=== PATIENT | female | born 1930 | race Asian ===

== ENCOUNTER → 2016-11-12 14:48 | Outpatient (CLI) | payer MEDICARE | END | disposition home or self-care (01) | LOC: D.MAMMO 11:00 | DX: Z12.31 Encounter for screening mammogram for malignant neoplasm of breast (principal) ==

== ENCOUNTER → 2019-03-18 09:14 | Outpatient (CLI) | payer MEDICARE ==
[~2019-03-18] VITALS: Ht 154.9 cm; Wt 74.5 kg
[2019-03-18 09:48] VITALS: Ht 154.9 cm; Wt 74.5 kg
--- NOTE | 2019-03-18 14:48 | NUR ---
PATIENT DENIES ANY SYMPTOMS OF TRANSFUSION REACTION AND HAS NO OBSERVED SIGNS OF REACTION. PATIENT WALKS OUT OF OUTPATIENT DEPARTMENT WITH DAUGHTER
== END | disposition home or self-care (01) ==
LOC: D.OPS 09:14
PROVIDERS: ATTEND Internal Medicine Hematology & Oncology
DX: D46.20 Refractory anemia with excess of blasts, unspecified (principal)

== ENCOUNTER → 2019-04-15 10:39 | Outpatient (CLI) | payer MEDICARE ==
[~2019-04-15] VITALS: Ht 154.9 cm; Wt 74.5 kg
[2019-04-15 12:10] VITALS: BP 111/78; Ht 154.9 cm; Wt 74.5 kg
--- NOTE | 2019-04-15 14:09 | NUR ---
1335: PT PIV REMOVED FROM R-WRIST. 2X2 GAUZE, MEDIPORE TAPE AND COMPRESSION WRAP APPLIED. 1343: NO BLEEDING NOTED FROM PIV SITE. PT TRANSPORTED VIA WC TO [facility] FOR RIDE HOME.
== END | disposition home or self-care (01) ==
LOC: D.OPS 10:30
PROVIDERS: ATTEND Internal Medicine Hematology & Oncology
DX: D69.49 Other primary thrombocytopenia (principal); D46.1 Refractory anemia with ring sideroblasts

== ENCOUNTER 2019-05-31 09:55 | Outpatient (CLI) | payer MEDICARE ==
[~2019-05-31] VITALS: Ht 154.9 cm; Wt 72.7 kg
[2019-05-31 10:51] VITALS: BP 143/63; Ht 154.9 cm; Wt 72.7 kg
--- NOTE | 2019-05-31 11:21 | NUR ---
1115 ROOM CHECK, DAUGHTER AT SIDE, DENIES PROBLEMS WITH BLOOD, RATE INCREASED TO 150/CC/HR.
--- NOTE | 2019-05-31 11:31 | NUR ---
1130 REG. DIET SERVED.
--- NOTE | 2019-05-31 12:04 | NUR ---
1200 ROOM CHECK, PT. EATING, DENIES PROBLEMS.
--- NOTE | 2019-05-31 12:21 | NUR ---
1220 ATE 80% LUNCH, TRANSFUSION GOING WELL, RATE AT 250/CC/HR. DENIES PROBLEMS. HOB ADJUSTED FOR COMFORT.
--- NOTE | 2019-05-31 12:57 | NUR ---
2ND UNIT STARTED AT THIS TIME, PT PLACED ON 2L NC O2 WAS 89% RA. PT DENIES ANY COMPLAINTS AT THIS TIME.
--- NOTE | 2019-05-31 13:45 | NUR ---
1240 FIRST UNIT BLOOD HAS COMPLETED, LINE FLUSHED WITH NS, LASIX GIVEN E-MAR, 1255 2ND UNIT CHECKED AT BEDSIDE, INITIATED AT 50/CC/HR. 1310 DENIES PROBLEMS, RATE INCREASED TO 250/CC/HR. 1330 ROOM CHECK, DENIES PROBLEMS. 1345 ROOM CHECK, DENIES PROBLEMS, LAYING ON RIGHT SIDE, RESTING.
--- NOTE | 2019-05-31 13:56 | NUR ---
PT WEANED OFF OF 02 AT THIS TIME, O2 96% ON ROOM AIR.
--- NOTE | 2019-05-31 17:24 | NUR ---
1449 2ND UNIT COMPLETED, LINE BEING FLUSHED. 1505 PLATLETS INITIATED. 1535 PLATLETS COMPLETED, LINE BEING FLUSHED, DENIES PROBLEMS. UP TO BR 1600 IV DC'D WITH CATH INTACT DC INSTS REVIEWED VOICED UNDERSTANDING RELEASED IN WC WITH DAUGHTER
== END 2019-05-31 16:10 | disposition home or self-care (01) ==
LOC: D.OPS 09:55
PROVIDERS: ATTEND Internal Medicine Hematology & Oncology
DX: D69.49 Other primary thrombocytopenia (principal); D46.Z Other myelodysplastic syndromes; R53.83 Other fatigue

== ENCOUNTER 2019-06-14 16:00 | Outpatient (CLI) | payer MEDICARE ==
[~2019-06-14] VITALS: Ht 154.9 cm; Wt 72.7 kg
[2019-06-14 12:36] VITALS: BP 111/70; Ht 154.9 cm; Wt 72.7 kg
--- NOTE | 2019-06-14 15:50 | NUR ---
1500 2ND UNIT INFUSING 1515 REPORT RECIEVED FROM ANGÉLICA. PT SLIGHTLY SOB WHEN TALKING. DR FUNES CALLED AND ORDERS GIVEN 1520 ASSISTED UP TO BSC VOIDED LARGE AMT 1530 PCXR DONE TOLERATED WELL 1540 RESP HERE TO GIVE TX 1555 PT ASSISTED UP TO BSC TO VOID AGAIN
--- NOTE | 2019-06-14 16:52 | NUR ---
8579 DAUGHTER AT BEDSIDE
--- NOTE | 2019-06-14 18:33 | NUR ---
1805 PLATLETS INFUSED. INSTRUCTIONS GIVEN 1815 IV REMOVED AND PRESSURE HELD MORE THAN 10 MIN. PRESSURE DRESSING APPLIED
== END 2019-06-14 18:30 | disposition home or self-care (01) ==
LOC: D.OPS 16:00
PROVIDERS: ATTEND Internal Medicine Hematology & Oncology
DX: D46.Z Other myelodysplastic syndromes (principal); D69.49 Other primary thrombocytopenia; R53.83 Other fatigue

== ENCOUNTER 2019-07-01 12:18 | Inpatient (IN) | payer MEDICARE ==
[~2019-07-01] VITALS: Ht 154.9 cm; Wt 74.0 kg
[2019-07-01 13:15] LABS: ANION GAP 7.7 mmol/L (8-16); CALCIUM 9.1 mg/dL (8.5-10.1); CARBON DIOXIDE 32.6 mmol/L (21.0-32.0); CREATININE - SERUM 0.8 mg/dL (0.6-1.3); POTASSIUM - SERUM 4.3 mmol/L (3.5-5.1)
[2019-07-01 13:23] LABS: ALBUMIN 3.5 g/dL (3.4-5.0); BILIRUBIN - TOTAL 1.09 mg/dL (0.2-1.3); PROTEIN - SERUM 6.9 g/dL (6.4-8.2)
[2019-07-01 13:35] LABS: HEMATOCRIT 21.7 % (36.0-48.0); MCH 31.4 pg (26.0-34.0); MCHC 32.3 g/dL (31.0-37.0); MCV 97.3 fL (80.0-100.0); RBC 2.23 10x6/uL (4.00-5.40); RDW 22.5 % (11.5-14.5); WBC 2.3 10x3/uL (4.8-10.8)
[2019-07-01 14:13] LABS: PLATELET COUNT 21 10x3/uL (130-400)
[2019-07-01 14:17] LABS: CKMB 3.9 U/L (0.0-3.6); CREATINE KINASE 85 UL (21-215); EOSINOPHILS 1 % (0-7); LYMPHOCYTES 24 % (15-50); MONOCYTES 2 % (2-11); NEUTROPHILS 63 % (40-80); PLATELET ESTIMATE DECREASED
[2019-07-01 14:22] LABS: TROPONIN-I < 0.017 ng/mL (0.000-0.060)
[2019-07-01 14:51] LABS: C-REACTIVE PROTEIN 0.3 mg/dL (0.0-0.9)
--- NOTE | 2019-07-01 20:30 | NUR ---
RECEIVED PT TO ROOM FROM ER VIA BED. PLACED IN DROPLETT PRECAUTIONS PER ORDER. PT AMBULATORY WITH STAND BY ASSIST. PT HAS DYSPNEA ON EXERTION AND FREQUENT COUGHT. 2L VIA NC, PT STATES THAT WHAT SHE WEARS AT HOME. NO S/SX OF DISTRESS OBSERVED AT THIS TIME. EDUCATED USE OF CALL LIGHT FOR ASSISTANCE. WILL CTM.
[2019-07-02 01:05] VITALS: BP 118/49
[2019-07-02 01:11] VITALS: BP 125/64; BMI 30.8
--- NOTE | 2019-07-02 01:40 | NUR ---
PT RESTING IN BED. NO VOICED C/O OR CONCERNS AT THIS TIME. PLACED ON TELEMETRY PER ORDER. 79 NORMAL SINUS. CALL LIGHT IN REACH. WILL CTM.
[2019-07-02 05:05] LABS: BASOPHILS 0.5 % (0-2); EOSINOPHILS 1.5 % (0-7); LYMPHOCYTES 33.7 % (15-50); MCH 31.5 pg (26.0-34.0); MCHC 32.8 g/dL (31.0-37.0); MCV 96.1 fL (80.0-100.0); MONOCYTES 7.9 % (2-11); NEUTROPHILS 56.4 % (40-80); RBC 2.03 10x6/uL (4.00-5.40); RDW 22.5 % (11.5-14.5)
[2019-07-02 05:11] LABS: HEMATOCRIT 19.5 % (36.0-48.0); HEMOGLOBIN 6.4 g/dL (12-16); PLATELET COUNT 15 10x3/uL (130-400)
[2019-07-02 05:13] LABS: APTT 26.5 SECONDS (22.8-39.4); INR 1.09 (0.85-1.17); PROTIME 14.1 SECONDS (11.6-15.0)
[2019-07-02 05:14] LABS: D-DIMER-QUANTITATIVE 0.33 ug/mLFEU (0.20-0.54)
[2019-07-02 05:30] LABS: ANION GAP 8.5 mmol/L (8-16); CALCIUM 8.9 mg/dL (8.5-10.1); CARBON DIOXIDE 30.3 mmol/L (21.0-32.0); CREATININE - SERUM 0.8 mg/dL (0.6-1.3); MAGNESIUM - SERUM 1.6 mg/dL (1.8-2.4); PHOSPHOROUS 4.2 mg/dL (2.5-4.9); POTASSIUM - SERUM 3.8 mmol/L (3.5-5.1)
--- NOTE | 2019-07-02 06:00 | NUR ---
NOTIFED VERITO GONZALEZ OF HGB 6.4. RECEIVED ORDER TO TRANSFUSE 2 UNITS OF PRBC AND TO NOTIFY DR. BENITO OF LOW PLT COUNT AND ADDITIONAL LABS. PAGED X2.
--- NOTE | 2019-07-02 06:24 | NUR ---
STARTED FIRST UNIT OF PRBC PER ORDER TO 20G PIV IN RIGHT AC. NO S/SX OF AN ADVERSE REACTION NOTED. NO S/SX OF DISTRESS OBSERVED. CALL LIGHT IN REACH. WILL CTM.
--- NOTE | 2019-07-02 07:25 | NUR ---
PT ALERT/ORIENTED, BLOOD INFUSING AT THIS TIME. NO COMPLAINTS OR CONCERNS AT THIS TIME. CL IN REACH, SRX2. NO VISITORS AT BEDSIDE.
[2019-07-02 08:13] VITALS: BP 154/94
[2019-07-02 10:36] VITALS: Ht 154.9 cm; Wt 74.0 kg
--- NOTE | 2019-07-02 11:17 | NUR ---
2ND UNIT PRBC'S INITIATED ON PATIENT AT THIS TIME. TOLERATING TRANSFUSION WELL. NO DISTRESS. 144/84. CALL LIGHT WITHIN REACH.
[2019-07-02] MEDS ORDERED: PROTONIX40 MG PO (12:48)
[2019-07-02] MEDS ORDERED: SYNTHROID25 MCG PO (12:48)
--- NOTE | 2019-07-02 14:02 | MORECARE ---
CASE MANAGEMENT DISCHARGE SUMMARY PATIENT: CARMENCITA MELO UNIT: [id number] ADM DATE: 07/01/19 AGE: 88 : 32 SEX: F ROOM/BED: D.[facility] AUTHOR: COLE TAN PHYSICIAN: REFERRING PHYSICIAN: TATUM TORRES MD DATE OF SERVICE: 07/02/19 Discharge Plan Patient Name: CARMENCITA MELO [facility] [facility] 1930 Planned Disposition: Home Anticipated Discharge Date: Discharge Date: Expected LOS: Initial Reviewer: [email or web address] Initial Review Date: 07/01/2019 Generated: 07/02/19 3:01 pm DCPIA - Discharge Planning Initial Assessment Updated by [email or web address]: Allyssa Heart on 07/02/19 2:00 pm * Is the patient Alert and Oriented? No * How many steps to enter\exit or inside your home? 0/0 * PCP FAMILY: JOSE MIGUEL * Pharmacy [facility] * Preadmission Environment Home with Family * ADLs Partial Dependent * Partial ADLs (Assistance needed) Medication Management * Equipment Bedside Commode Elevated [place] Seat Grab Bars Oxygen Rolling Walker Shower Chair Walker * Other Equipment LIFT CHAIR * List name and contact numbers for known caregivers / representatives who currently or will assist patient after discharge: STACIE DAUGHTER * Verbal permission to speak to the caregivers and representatives has been obtained from the patient. Yes * Community resources currently utilized None * Additional services required to return to the preadmission environment? No * Can the patient safely return to the preadmission environment? Yes * Has this patient been hospitalized within the prior 30 days at any hospital? No Patient Name: CARMENCITA MELO Page [phone] at 1402 All edits/amendments must be made on the electronic document DICTATION DATE: 07/02/19 140 MARKETING PRODUCTION COORDINATOR: RAMÍREZ 07/02/19 1401 RPT#: [id number] DC DATE: STATUS: ADM IN [facility] [address] [place] [address] END OF REPORT
--- NOTE | 2019-07-02 14:07 | NUR ---
RX'S FOR SYNTHROID AND PROTONIX ISSUED TO [email or web address].
--- NOTE | 2019-07-02 14:09 | MORECARE ---
CASE MANAGEMENT DISCHARGE SUMMARY PATIENT: CARMENCITA MELO UNIT: [id number] ADM DATE: 07/01/19 AGE: 88 : 32 SEX: F ROOM/BED: D.7774 AUTHOR: BRITNEY,DOC PHYSICIAN: REFERRING PHYSICIAN: TATUM TORRES MD DATE OF SERVICE: 07/02/19 Discharge Plan Patient Name: CARMENCITA MELO Facility: [facility]:[place] : 1930 Planned Disposition: Home Anticipated Discharge Date: Discharge Date: Expected LOS: Initial Reviewer: [email or web address] Initial Review Date: 07/01/2019 Generated: 07/02/19 3:09 pm Comments DCP- Discharge Planning Updated by [email or web address]: Allyssa Heart on 07/02/19 1:[address] Patient Name: CARMENCITA MELO Admission Status: ER Accout number: [id number] Admission Date: 07-01-2019 : 1930 Admission Diagnosis: Attending: TATUM TORRES Current LOS: 1 Anticipated DC Date: Planned Disposition: Home Primary Insurance: [employer] ADV Discharge Planning Comments: CM met with patient to complete initial dc planning assessment. Patient confused. Stated for CM to call daughter. CM called Stacie (dtr) educated family on the CM role and verbal consent given to complete assessment. CM verified patient's address, phone number, and emergency contact phone numbers. Patient lives at home with her daughters. Stacie is the patients primary careers counsellor. At discharge patient plans to return home and feels this is a safe discharge. CM discussed availability of home health, rehab services, and medical equipment. Pt has home oxygen with [employer]. MARC signed to resume care. Patient denies other discharge needs at this time. Transportation provider at discharge will be Stacie. CM will continue to follow and will assist as needed with dc plans/needs. Safety Compliance Specialist: Allyssa Heart MSN, RN, CM DCPIA - Discharge Planning Initial Assessment Updated by [email or web address]: Allyssa Heart on 07/02/19 2:00 pm * Is the patient Alert and Oriented? No * How many steps to enter\exit or inside your home? 0/0 * PCP FAMILY: JOSE MIGUEL * Pharmacy [facility] * Preadmission Environment Home with Family * ADLs Partial Dependent * Partial ADLs (Assistance needed) Medication Management * Equipment Bedside Commode Elevated [place] Seat Grab Bars Oxygen Rolling Walker Shower Chair Walker * Other Equipment LIFT CHAIR * List name and contact numbers for known caregivers / representatives who currently or will assist patient after discharge: STACIE DAUGHTER * Verbal permission to speak to the caregivers and representatives has been obtained from the patient. Yes * Community resources currently utilized None * Additional services required to return to the preadmission environment? No * Can the patient safely return to the preadmission environment? Yes * Has this patient been hospitalized within the prior 30 days at any hospital? No Last DP export: 07/02/19 1:02 p Patient Name: CARMENCITA MELO Page [phone] at 1409 All edits/amendments must be made on the electronic document DICTATION DATE: 07/02/191408 MANUFACTURERS AGENT: RAMÍREZ 07/02/19 1409 RPT#: [id number] DC DATE: STATUS: ADM IN [facility] [address] [place] [address] END OF REPORT
--- NOTE | 2019-07-02 15:55 | NUR ---
PT ESCORTED OUT VIA [facility] TO [facility].
--- NOTE | 2019-07-02 15:58 | MORECARE ---
CASE MANAGEMENT DISCHARGE SUMMARY PATIENT: CARMENCITA MELO UNIT: [id number] ADM DATE: 07/01/19 AGE: 88 : 32 SEX: F ROOM/BED: D.9192 AUTHOR: BRITNEY,DOC PHYSICIAN: REFERRING PHYSICIAN: TATUM TORRES MD DATE OF SERVICE: 07/02/19 Discharge Plan Patient Name: CARMENCITA MELO Facility: [facility]:[place] : 1930 Planned Disposition: Home Anticipated Discharge Date: Discharge Date: 07/02/2019 Expected LOS: Initial Reviewer: [email or web address] Initial Review Date: 07/01/2019 Generated: 07/02/19 4:58 pm Comments DCP- Discharge Planning Updated by [email or web address]: Allyssa Heart on 07/02/19 1:[address] Patient Name: CARMENCITA MELO Admission Status: ER Accout number: [id number] Admission Date: 07-01-2019 : 1930 Admission Diagnosis: Attending: TATUM TORRES Current LOS: 1 Anticipated DC Date: Planned Disposition: Home Primary Insurance: [employer] ADV Discharge Planning Comments: CM met with patient to complete initial dc planning assessment. Patient confused. Stated for CM to call daughter. CM called Stacie (dtr) educated family on the CM role and verbal consent given to complete assessment. CM verified patient's address, phone number, and emergency contact phone numbers. Patient lives at home with her daughters. Stacie is the patients primary family day care worker. At discharge patient plans to return home and feels this is a safe discharge. CM discussed availability of home health, rehab services, and medical equipment. Pt has home oxygen with [employer]. MARC signed to resume care. Patient denies other discharge needs at this time. Transportation provider at discharge will be Stacie. CM will continue to follow and will assist as needed with dc plans/needs. Software Tester: Allyssa Heart MSN, RN, CM DCPIA - Discharge Planning Initial Assessment Updated by [email or web address]: Allyssa Heart on 07/02/19 2:00 pm * Is the patient Alert and Oriented? No * How many steps to enter\exit or inside your home? 0/0 * PCP FAMILY: JOSE MIGUEL * Pharmacy [facility] * Preadmission Environment Home with Family * ADLs Partial Dependent * Partial ADLs (Assistance needed) Medication Management * Equipment Bedside Commode Elevated [place] Seat Grab Bars Oxygen Rolling Walker Shower Chair Walker * Other Equipment LIFT CHAIR * List name and contact numbers for known caregivers / representatives who currently or will assist patient after discharge: STACIE DAUGHTER * Verbal permission to speak to the caregivers and representatives has been obtained from the patient. Yes * Community resources currently utilized None * Additional services required to return to the preadmission environment? No * Can the patient safely return to the preadmission environment? Yes * Has this patient been hospitalized within the prior 30 days at any hospital? No Coverage Notice Reviewer: [email or web address] Heart Notice Issued Date-Time: 07/02/2019 12:30 Notice Type: IM Discharge Notice Notice Delivered To: Patient Relationship to Patient: Appeals Court Associate Justice Name: Delivery Method: HAND - Hand Delivered Dilcia Days: Prior Verbal Notification: Recipient Understood Notice: Yes Recipient Signature: Yes Med Rec Note Co-signed by Attending: Coverage Notice Comment: Reviewer: [id number] Heart Notice Issued Date-Time: 07/02/2019 12:30 Notice Type: Patient Choice Letter Notice Delivered To: Patient Relationship to Patient: Appeals Court Associate Justice Name: Delivery Method: HAND - Hand Delivered Dilcia Days: Prior Verbal Notification: Recipient Understood Notice: Yes Recipient Signature: Yes Med Rec Note Co-signed by Attending: Coverage Notice Comment: ROSA GIBBS Last DP export: 07/02/19 1:09 p Patient Name: CARMENCITA MELO Page [phone] at 1558 All edits/amendments must be made on the electronic document DICTATION DATE: 07/02/19 1557 HAUNTED HISTORY TOUR GUIDE: RAMÍREZ 07/02/19 1557 RPT#: [id number] DC DATE:07/02/19 STATUS: DIS IN [facility] [address] [place] [address] END OF REPORT
--- NOTE | 2019-07-04 08:50 | MORECARE ---
CASE MANAGEMENT DISCHARGE SUMMARY PATIENT: CARMENCITA MELO UNIT: [id number] ADM DATE: 07/01/19 AGE: 88 : 34 SEX: F ROOM/BED: D.1144 AUTHOR: BRITNEY,DOC PHYSICIAN: REFERRING PHYSICIAN: TATUM TORRES MD DATE OF SERVICE: 07/04/19 Discharge Plan Patient Name: CARMENCITA MELO Facility: [facility]:[place] : 1930 Planned Disposition: Home Anticipated Discharge Date: Discharge Date: 07/02/2019 Expected LOS: Initial Reviewer: [email or web address] Initial Review Date: 07/01/2019 Generated: 07/04/19 9:50 am Comments DCP- Discharge Planning Updated by [email or web address]: Allyssa Heart on 07/02/19 1:[address] Patient Name: CARMENCITA MELO Admission Status: ER Accout number: [id number] Admission Date: 07-01-2019 : 1930 Admission Diagnosis: Attending: TATUM TORRES Current LOS: 1 Anticipated DC Date: Planned Disposition: Home Primary Insurance: [employer] ADV Discharge Planning Comments: CM met with patient to complete initial dc planning assessment. Patient confused. Stated for CM to call daughter. CM called Stacie (dtr) educated family on the CM role and verbal consent given to complete assessment. CM verified patient's address, phone number, and emergency contact phone numbers. Patient lives at home with her daughters. Stacie is the patients primary health care consultant. At discharge patient plans to return home and feels this is a safe discharge. CM discussed availability of home health, rehab services, and medical equipment. Pt has home oxygen with [employer]. MARC signed to resume care. Patient denies other discharge needs at this time. Transportation provider at discharge will be Stacie. CM will continue to follow and will assist as needed with dc plans/needs. Rayon Tester: Allyssa Heart MSN, RN, CM DCPIA - Discharge Planning Initial Assessment Updated by [email or web address]: Allyssa Heart on 07/02/19 2:00 pm * Is the patient Alert and Oriented? No * How many steps to enter\exit or inside your home? 0/0 * PCP FAMILY: JOSE MIGUEL * Pharmacy [facility] * Preadmission Environment Home with Family * ADLs Partial Dependent * Partial ADLs (Assistance needed) Medication Management * Equipment Bedside Commode Elevated [place] Seat Grab Bars Oxygen Rolling Walker Shower Chair Walker * Other Equipment LIFT CHAIR * List name and contact numbers for known caregivers / representatives who currently or will assist patient after discharge: STACIE DAUGHTER * Verbal permission to speak to the caregivers and representatives has been obtained from the patient. Yes * Community resources currently utilized None * Additional services required to return to the preadmission environment? No * Can the patient safely return to the preadmission environment? Yes * Has this patient been hospitalized within the prior 30 days at any hospital? No Coverage Notice Reviewer: [id number] Heart Notice Issued Date-Time: 07/02/2019 12:30 Notice Type: IM Discharge Notice Notice Delivered To: Patient Relationship to Patient: Purchasing Manager/Sales Name: Delivery Method: HAND - Hand Delivered Dilcia Days: Prior Verbal Notification: Recipient Understood Notice: Yes Recipient Signature: Yes Med Rec Note Co-signed by Attending: Coverage Notice Comment: Reviewer: [id number] Heart Notice Issued Date-Time: 07/02/2019 12:30 Notice Type: Patient Choice Letter Notice Delivered To: Patient Relationship to Patient: Purchasing Manager/Sales Name: Delivery Method: HAND - Hand Delivered Dilcia Days: Prior Verbal Notification: Recipient Understood Notice: Yes Recipient Signature: Yes Med Rec Note Co-signed by Attending: Coverage Notice Comment: ROSA GIBBS Last DP export: 07/02/19 2:58 p Patient Name: CARMENCITA MELO Page [phone] at 0850 All edits/amendments must be made on the electronic document DICTATION DATE: 07/04/19 0850 AGRICULTURAL EDUCATION INSTRUCTOR: RAMÍREZ 07/04/19 0850 RPT#: [id number] DC DATE:07/02/19 STATUS: DIS IN [facility] [address] [place] [address] END OF REPORT
== END 2019-07-02 15:55 | disposition home or self-care (01) | DRG 811 ==
LOC: D.ER 12:18 → D.M2 18:12
PROVIDERS: Family Medicine; ADMIT Internal Medicine Nephrology; ATTEND Internal Medicine Nephrology
DX: D46.9 Myelodysplastic syndrome, unspecified (principal); J96.20 Acute and chronic respiratory failure, unspecified whether with hypoxia or hypercapnia; C95.90 Leukemia, unspecified not having achieved remission; D61.818 Other pancytopenia; I10 Essential (primary) hypertension; J44.9 Chronic obstructive pulmonary disease, unspecified; K21.9 Gastro-esophageal reflux disease without esophagitis; M19.90 Unspecified osteoarthritis, unspecified site; Z86.73 Personal history of transient ischemic attack (TIA), and cerebral infarction without residual deficits; D63.8 Anemia in other chronic diseases classified elsewhere

== ENCOUNTER 2019-07-14 12:30 | Outpatient (CLI) | payer MEDICARE ==
[~2019-07-14] VITALS: Ht 154.9 cm; Wt 73.4 kg
[~2019-07-14 12:30] MED LIST: PROTONIX40 MG PO; SYNTHROID25 MCG PO
[2019-07-14 14:36] VITALS: BP 148/57; Ht 154.9 cm; Wt 73.4 kg
== END 2019-07-14 17:50 | disposition home or self-care (01) ==
LOC: D.OPS 12:30
PROVIDERS: ATTEND Internal Medicine Hematology & Oncology
DX: D46.Z Other myelodysplastic syndromes (principal); D69.49 Other primary thrombocytopenia

== ENCOUNTER 2019-07-26 09:25 | Outpatient (CLI) | payer MEDICARE ==
[~2019-07-26] VITALS: Ht 154.9 cm; Wt 72.7 kg
[2019-07-26 09:53] VITALS: BP 124/36; Ht 154.9 cm; Wt 72.7 kg
== END 2019-07-26 14:45 | disposition home or self-care (01) ==
LOC: D.OPS 09:25
PROVIDERS: ATTEND Internal Medicine Hematology & Oncology
DX: D46.Z Other myelodysplastic syndromes (principal); D69.49 Other primary thrombocytopenia

== ENCOUNTER 2019-08-05 09:50 | Outpatient (CLI) | payer MEDICARE ==
[~2019-08-05] VITALS: Ht 154.9 cm; Wt 73.6 kg
[2019-08-05 10:22] VITALS: BP 124/90; Ht 154.9 cm; Wt 73.6 kg
== END 2019-08-05 14:00 | disposition home or self-care (01) ==
LOC: D.OPS 09:50
PROVIDERS: ATTEND Internal Medicine Hematology & Oncology
DX: D46.Z Other myelodysplastic syndromes (principal); D69.49 Other primary thrombocytopenia

== ENCOUNTER 2019-08-16 10:00 | Outpatient (CLI) | payer MEDICARE ==
[~2019-08-16] VITALS: Ht 154.9 cm; Wt 72.7 kg
[2019-08-16 10:56] VITALS: Ht 154.9 cm; Wt 72.7 kg
--- NOTE | 2019-08-16 12:28 | NUR ---
SECOND UNIT PLATELETS FINISHED TRANSFUSING RIGHT HAND PIV WITHOUT DIFFICULTY. PATIENT HAS NO SIGNS OR SYMPTOMS OF TRANSFUSION REACTION.
== END 2019-08-16 13:00 | disposition home or self-care (01) ==
LOC: D.OPS 10:00
PROVIDERS: ATTEND Internal Medicine Hematology & Oncology
DX: D69.49 Other primary thrombocytopenia (principal)

== ENCOUNTER 2019-09-16 08:47 | Outpatient (CLI) | payer MEDICARE ==
[~2019-09-16] VITALS: Ht 154.9 cm; Wt 69.1 kg
[2019-09-16 09:35] VITALS: Ht 154.9 cm; Wt 69.1 kg
== END 2019-09-16 12:50 | disposition home or self-care (01) ==
LOC: D.OPS 08:47
PROVIDERS: ATTEND Internal Medicine Hematology & Oncology
DX: D46.Z Other myelodysplastic syndromes (principal); D69.49 Other primary thrombocytopenia

== ENCOUNTER 2019-10-17 09:49 | Outpatient (CLI) | payer MEDICARE ==
[~2019-10-17] VITALS: Ht 154.9 cm; Wt 70.9 kg
[2019-10-17 12:02] VITALS: Ht 154.9 cm; Wt 70.9 kg
--- NOTE | 2019-10-17 12:55 | NUR ---
1250 ROOM CHECK, BLOOD INFUSING WITHOUT PROBLEMS, PT. UP TO BR VOIDS, PT ATE LUNCH. O2 2L NC. RATE 250/CC/HR
--- NOTE | 2019-10-17 13:19 | NUR ---
1319 1ST UNIT BLOOD HAS COMPLETED, LINE BEING FLUSHED WITH NS.
--- NOTE | 2019-10-17 13:39 | NUR ---
1319 1ST UNIT PRBC HAS COMPLETED, LINE BEING FLUSHED WITH NS. PT. SLEEPING. 1330 2ND UNIT CHECKED AT BEDSIDE BY THIS NURSE AND CARL ROJAS RN, NUMBERS CORRECT, LASIX 20MG IV WAS GIVEN PER E-MAR. PT RETURNED TO SLEEP. CALL LIGHT AT BEDSIDE. INITIATED BLOOD AT 50/CC/HR.
--- NOTE | 2019-10-17 13:50 | NUR ---
1350 NO PROBLEMS WITH BLOOD, RATE INCREASED TO 250/CC/HR.
--- NOTE | 2019-10-17 14:25 | NUR ---
1425 ROOM CHECK PT. SLEEPING.
--- NOTE | 2019-10-17 16:14 | NUR ---
1610 PLATLETS HAVE COMPLETED, DENIES PROBLEMS, LINE BEING FLUSHED WITH NS. PT'S DAUGHTER IS AT SIDE. PT. SITTING ON SIDE OF BED. RAMOS
--- NOTE | 2019-10-17 16:41 | NUR ---
1635 NO PROBLEMS, IV DC'D WITH CATH INTACT UP TO BR VOIDS LG AMT. PT HAD PREVIOUSLY SOILED HER UNDERWEAR AND DAUGHTER BROUGHT FRESH UNDERWEAR FROM VOIDING LG AMT. DC INSTS GIVEN VOICED UNDERSTANDING TO BE RELEASED IN .
== END 2019-10-17 16:40 | disposition home or self-care (01) ==
LOC: D.OPS 09:49
PROVIDERS: ATTEND Internal Medicine Hematology & Oncology
DX: D69.49 Other primary thrombocytopenia (principal); D46.Z Other myelodysplastic syndromes

== ENCOUNTER 2019-11-02 08:05 | Outpatient (CLI) | payer MEDICARE ==
[~2019-11-02] VITALS: Ht 154.9 cm; Wt 72.3 kg
[2019-11-02 12:05] VITALS: BP 163/41; Ht 154.9 cm; Wt 72.3 kg
--- NOTE | 2019-11-02 15:24 | NUR ---
1520 REPORT RECEIVED FROM LAURA MCGHEE RN. BLOOD TRANSFUSING LEFT HAND AT 175/CC/HR. O2 AT 2L NC. PT'S DAUGHTER AT BEDSIDE. PT. DENIES PROBLEMS WITH BLOOD. PT. ADJUSTED IN BED FOR COMFORT. COFFEE SERVED.
--- NOTE | 2019-11-02 17:53 | NUR ---
1740 PLATLETS HAVE COMPLETED, LINE BEING FLUSHED WITH NS.
--- NOTE | 2019-11-02 18:11 | NUR ---
1800 TRANSFUSIONS ARE COMPLETED, DENIES PROBLEMS, IV DC'D WITH CATH INTACT. PT VOIDS AND HAS BM. DC INSTS REVIEWED. IV DC'D WITH CATH INTACT. TO BE RELEASED IN OWN WC WITH HER DAUGHTER.
== END 2019-11-02 18:10 | disposition home or self-care (01) ==
LOC: D.OPS 08:05
PROVIDERS: ATTEND Internal Medicine Hematology & Oncology
DX: D46.Z Other myelodysplastic syndromes (principal); D61.818 Other pancytopenia; D46.C Myelodysplastic syndrome with isolated del(5q) chromosomal abnormality; D69.49 Other primary thrombocytopenia

== ENCOUNTER 2019-11-23 08:27 | Outpatient (CLI) | payer MEDICARE ==
[~2019-11-23] VITALS: Ht 154.9 cm; Wt 69.1 kg
[2019-11-23 08:40] VITALS: BP 141/54; Ht 154.9 cm; Wt 69.1 kg
--- NOTE | 2019-11-23 10:31 | NUR ---
1018 DENIES PROBLEMS WITH TRANSFUSION, RATE INCREASED TO 175/CC/HR.
--- NOTE | 2019-11-23 11:23 | NUR ---
1115 ROOM CHECK, PT. AWAKE, DENIES PROBLEMS WITH TRANSFUSION, RATE 175/CC/HR. IV SITE PATENT.
--- NOTE | 2019-11-23 14:50 | NUR ---
1415 IV REMOVED AND INSTRUCTIONS GIVEN FAMILY IN ROOM.
== END 2019-11-23 14:30 ==
LOC: D.OPS 08:27
PROVIDERS: ATTEND Internal Medicine Hematology & Oncology
DX: D46.C Myelodysplastic syndrome with isolated del(5q) chromosomal abnormality (principal); D46.Z Other myelodysplastic syndromes; D69.49 Other primary thrombocytopenia

== ENCOUNTER → 2019-12-05 10:15 | Outpatient (CLI) | payer MEDICARE ==
[~2019-12-05] VITALS: Ht 154.9 cm; Wt 68.2 kg
[2019-12-05 11:13] VITALS: Ht 154.9 cm; Wt 68.2 kg
--- NOTE | 2019-12-05 14:04 | NUR ---
PT RECEIVED DC INSTRUCTIONS. STATES UNDERSTANDING. PT IS WAITING FOR HER SNAKER TO PICK HER UP.
== END | disposition home or self-care (01) ==
LOC: D.OPS 10:00
PROVIDERS: ATTEND Internal Medicine Hematology & Oncology
DX: D69.49 Other primary thrombocytopenia (principal); D61.818 Other pancytopenia

== ENCOUNTER 2019-12-22 10:30 | Outpatient (CLI) | payer MEDICARE ==
[~2019-12-22] VITALS: Ht 154.9 cm; Wt 69.1 kg
[2019-12-22 13:02] VITALS: BP 121/82; Ht 154.9 cm; Wt 69.1 kg
--- NOTE | 2019-12-22 15:42 | NUR ---
1545 PT HAS RECEIVED 2 UNITS OF PRBC'S AND 1 UNIT OF PLATELETS WITHOUT COMPLICATIONS. VSS. IV DC'D. CATHETER TIP INTACT. WRAPPED ARM IN COBAN.
== END 2019-12-22 15:50 | disposition home or self-care (01) ==
LOC: D.OPS 10:30
PROVIDERS: ATTEND Internal Medicine Hematology & Oncology
DX: D46.9 Myelodysplastic syndrome, unspecified (principal); D69.49 Other primary thrombocytopenia

== ENCOUNTER 2020-01-02 09:53 | Outpatient (CLI) | payer MEDICARE ==
[~2020-01-02] VITALS: Ht 154.9 cm; Wt 68.2 kg
[2020-01-02 11:01] VITALS: BP 114/63; Ht 154.9 cm; Wt 68.2 kg
--- NOTE | 2020-01-02 16:00 | NUR ---
PT IV REMOVED AT THIS TIME, NO REDNESS OR SWELLING NOTED AT SITE. IV SITE DRESSED WITH GAUZE AND COBAND. PT DC INSTRUCTIONS REVIEWED, PT AND FAMILY VERBALIZE UNDERSTANDING. PT DEMONSTRATES NO SIGN OF REACTION TO BLOOD TRANSFUSION.
--- NOTE | 2020-01-02 16:08 | NUR ---
PT LEAVING OPS AT THIS TIME VIA WC WITH FAMILY.
== END 2020-01-02 16:08 | disposition home or self-care (01) ==
LOC: D.OPS 09:53
PROVIDERS: ATTEND Internal Medicine Hematology & Oncology
DX: D69.49 Other primary thrombocytopenia (principal); D46.9 Myelodysplastic syndrome, unspecified

== ENCOUNTER 2020-01-10 10:15 | Outpatient (CLI) | payer MEDICARE ==
[~2020-01-10] VITALS: Ht 154.9 cm; Wt 67.7 kg
[2020-01-10 10:43] VITALS: Ht 154.9 cm; Wt 67.7 kg
--- NOTE | 2020-01-10 13:49 | NUR ---
1230 PLATLETS HAVE COMPLETED, LINE BEING FLUSHED WITH NS. 1250 LINE FLUSHED, IV DC'D WITH CATH INTACT. 1300 DC INSTS GIVEN TO BE RELEASED IN OWN WC WITH DAUGHTER.
== END 2020-01-10 13:10 | disposition home or self-care (01) ==
LOC: D.OPS 10:15
PROVIDERS: ATTEND Internal Medicine Hematology & Oncology
DX: D46.9 Myelodysplastic syndrome, unspecified (principal); D69.49 Other primary thrombocytopenia; D46.C Myelodysplastic syndrome with isolated del(5q) chromosomal abnormality

== ENCOUNTER 2020-01-19 10:00 | Outpatient (CLI) | payer MEDICARE ==
[~2020-01-19] VITALS: Ht 154.9 cm; Wt 66.8 kg
[2020-01-19 10:31] VITALS: BP 151/58; Ht 154.9 cm; Wt 66.8 kg
== END 2020-01-19 15:40 | disposition home or self-care (01) ==
LOC: D.OPS 10:00
PROVIDERS: ATTEND Internal Medicine Hematology & Oncology
DX: D64.9 Anemia, unspecified (principal); D46.9 Myelodysplastic syndrome, unspecified